=== PATIENT | female | born 1955 | race Asian ===

== ENCOUNTER 2024-12-10 17:58 | Emergency (ER) | payer OTHER, SELFPAY ==
[2024-12-10 18:01] VITALS: BP 127/73
[2024-12-10 18:25] LABS: Hematocrit 39.2 % (37.0-47.0); Hemoglobin 12.9 g/dL (12.0-16.0); Mean Corp Hgb Conc. 32.9 g/dL (33.0-37.0); Mean Corpuscular Volume 86.3 fL (81.0-99.0); Nucleated Red Blood Cells % 0 %; Platelet Count 421 10^3/uL (130-400); Red Cell Dist. Width 13.4 % (11.5-14.5); Urine Character Clear (Clear)
[2024-12-10 18:36] LABS: Urine Red Blood Cell 0-2 /HPF (0-2); Urine White Cell 16-20 /HPF (0-5)
[2024-12-10 18:48] LABS: ALT (SGPT) 17 U/L (0-35); AST (SGOT) 22 U/L (14-36); Albumin 4.0 g/dl (3.5-5.0); Alkaline Phosphatase 74 U/L (38-126); Blood Urea Nitrogen 20 mg/dl (7-17); Calcium 9.6 mg/dl (8.4-10.2); Carbon Dioxide 27 mmol/L (22-30); Chloride 102 mmol/L (98-107); Glucose 121 mg/dl (70-99); Potassium 5.3 mmol/L (3.5-5.1); Sodium 136 mmol/L (135-145); Total Protein 7.3 g/dl (6.3-8.2); eGFR > 60.00
[2024-12-10 18:51] VITALS: BP 127/54
[2024-12-10 18:58] VITALS: BMI 21.7
[2024-12-10 19:00] VITALS: BP 121/59
[2024-12-10 19:00] LABS: Troponin I < 0.012 ng/ml
--- NOTE | 2024-12-10 19:53 | ED.GENMED ---
History of Present Illness
General
Chief Complaint: Weakness
Source: patient and family (son)
Time Seen by Provider: 12/10/24 19:39
History of Present Illness
History of Present Illness:
69-year-old female brought to the emergency by family for evaluation of generalized weakness, sinus congestion, cough. Patient has been feeling unwell for the past 10 days. Several members of the household had URI symptoms which lasted 2 or 3 days
and resolved. The patient developed similar symptoms but her symptoms have not resolved. She continues to have sinus congestion and cough. She has no energy. Typically she is full of energy but her son states now she does any movement to go up a
flight of steps. No fever. She does not take any prescription medications.
Phy Exam
Physical Exam
Physical Exam:
General: Awake, Alert, Oriented X3. No acute distress. Evident nasal congestion
Vitals: unremarkable
Head: Atraumatic
Eyes: Pupils equal, EOMI
Throat: Airway intact, no exudates
Neck: Trachea midline
Lungs: Clear and equal b/l
Heart: Regular rate, no murmurs
Abd: Soft, Nontender, No pulsatile mass
Neuro: Nonfocal
Skin: Warm, dry, no rash
Extremities: pulses equal b/l, no edema
Course
Orders/Labs/Results
Orders:
Orders
12/10/24 18:06
Electrocardiogram (*1) Urgent
Reason for Study: Chest Pain
EKG- Treatment ONCE
12/10/24 18:17
Complete Blood Count/With Diff Urgent
Comprehensive Metabolic Panel Urgent
Troponin I Urgent
Urinalysis Reflex To Culture Urgent
Date Specimen was Collected: 12/10/24
Time Specimen was Collected: 18:06
Urine Microscopic Reflex Cult Urgent
Urine Culture Urgent
PRANAV Source: U
Specimen Description:
Date Specimen was Collected: 12/10/24
Time Specimen was Collected: 18:06
12/10/24 19:51
CR Chest - 2 Views Urgent
Comment:
Reason For Exam: cough, weakness
12/10/24 19:52
0.9% Sodium Chloride 500 ml [Nss] 500 ml IV BOLUS
12/10/24 20:03
COVID-19 Antigen Urgent
Source: Nasal Swab
Influenza A+B Rapid Molecular Urgent
PRANAV Source: Nasal Swab
Specimen Description:
12/10/24 20:39
Acetaminophen [Tylenol] 1,000 mg PO NOW STA
Abnormal Lab Results
12/10/24
18:17
WBC 11.4 H 10^3/uL
(4.8-10.8)
MCHC 32.9 L g/dL
(33.0-37.0)
Plt Count 421 H 10^3/uL
(130-400)
Abs Immat Gran (auto) 0.1 H 10^3/uL
(0-0.05)
Absolute Neuts (auto) 7.4 H 10^3/uL
(1.4-6.5)
Absolute Monos (auto) 1.1 H 10^3/uL
(0.1-0.6)
Immature Gran % 1.0 H %
(0-0.5)
Monocytes % 9.5 H %
(1.7-9.3)
Potassium 5.3 H mmol/L
(3.5-5.1)
BUN 20 H mg/dl
(7-17)
Glucose 121 H mg/dl
(70-99)
Ur Occult Blood Reflex 1+ A
(Negative)
Leukocyte Esterase Rfl 2+ A
(Negative)
Urine WBC (Reflex) 16-20 A /HPF
(0-5)
Urine Bacteria (Reflex) Few A
(Negative)
Urine Albumin (Reflex) 1+ A
(Neg - Trace)
12/10/24 18:17
12/10/24 18:17
Vital Signs
Initial and Last Documented VS:
Initial Vital Signs
Temp Pulse Resp BP Pulse Ox
98.1 F 98 16 127/73 98
12/10/24 18:01 12/10/24 18:01 12/10/24 18:01 12/10/24 18:01 12/10/24 18:01
Last Documented Vital Signs
Temp Pulse Resp BP Pulse Ox
98.7 F 90 22 137/58 99
12/10/24 22:37 12/10/24 22:15 12/10/24 22:15 12/10/24 22:03 12/10/24 22:15
MDM/Problems Addressed
Differential Diagnosis Includes:
Pneumonia, UTI, viral illness, sinusitis
MDM/Problems Addressed:
Patient presents with subjective fever, malaise, body aches and sinus congestion present for about 10 days. Labs here are reassuring. Chest x-ray shows no acute abnormality. UA not consistent with urinary tract infection. COVID and flu are
negative. Overall presentation seems most consistent with either a viral illness or sinusitis. Patient was started on Augmentin as an outpatient but had a lower dose of 500 mg. We will increase that the 875 twice a day. Follow-up primary care
doctor as an outpatient.
*Radiology
Radiology exam reviewed: preliminary read by ED provider (No acute abnormality on my review)
*Pulse Oximetry
SaO2: 99
Oxygen Mode of Delivery: Room air
Patient hypoxic: no
*EKG
Interpreted by ED Provider?: Yes
Interpretation: normal
Comparison EKG: no comparison EKG present
Heart Rate: 94
Rate: normal
Rhythm: sinus
[place]: normal axis
Interval: normal interval
QRS Pattern: normal QRS
Ischemia: no ischemia
*Seat Coverer Interpretation
Rate: normal
Interpretation: normal
Rhythm: sinus
*Critical Care Note
Total Time (30-74mins, 75-104mins- exclusive of procedures): Not Applicable
ED Attending Note
-
Portions of this chart may have been created with voice recognition software.� Occasional wrong word or��sound alike� substitutions may have occurred due to the inherent limitations of voice recognition software.
Discharge Plan
Departure
Patient Disposition: Home (Routine Discharge)
Date of Disposition: 12/10/24
Time of Disposition: 22:06
Patient with high blood pressure during this ER visit?: No
Condition: Good
Discharge Problem:
Sinusitis, acute
Prescriptions:
New
amoxicillin-pot clavulanate 875-125 mg tablet
1 tab PO BID Qty: 14 0RF
Referrals:
UNKNOWN - PT DOES,NOT KNOW [Family Provider]
Interventions
Interventions:
*Risk Screen - Suicide Last Done: 12/10/24 18:01
*General Assessment Last Done: 12/10/24 18:58
*Neglect/Abuse Screening Last Done: 12/10/24 18:01
*ED- Fall Risk Assessment Last Done: 12/10/24 18:58
*ED COVID-19 Vaccine History Last Done: 12/10/24 18:58
*Nursing Disposition Last Done: 12/10/24 22:40
ED- Cardiac Assessment Last Done: 12/10/24 18:58
ED- Neurological Assessment Last Done: 12/10/24 18:58
ED- Pulmonary Assessment Last Done: 12/10/24 18:58
Discharge Date and Time
Discharge Date/Time: 12/10/24 22:42
Print Language: [id number]
[2024-12-10 20:00] VITALS: BP 120/50
[2024-12-10] MEDS: NSS 500 IV (20:10)
[2024-12-10 20:39] LABS: COVID-19 Antigen Negative (Negative)
[2024-12-10] MEDS: TYLENOL 1000 MG PO (21:49)
[2024-12-10 22:03] VITALS: BP 137/58
== END 2024-12-10 22:42 | disposition home or self-care (01) ==
LOC: EMR 17:58
PROVIDERS: Emergency Medicine; EMERGENCY PHYSICIAN Emergency Medicine
DX: J01.90 Acute sinusitis, unspecified (principal); R53.81 Other malaise; R05.9 Cough, unspecified; Z11.52 Encounter for screening for COVID-19
CPT/HCPCS: 99284; 96360; 71046; 80053; 81003; 81015; 84484; 85025; 87086; 87502; 87811; 93005